=== PATIENT | female | born 1995 | race Asian ===

== ENCOUNTER 2020-06-13 22:03 | Observation (INO) ==
[2020-06-13] MEDS ORDERED: LORazepam 0.5 MG/1 ML VIAL IV STA (22:19)
--- NOTE | 2020-06-13 22:23 | Emergency Department Note ---
Impression & Plan SOB (shortness of breath), Hypophosphatemia, Precordial chest pain, Numbness ED Provider Note NAME: JANIS BROWNING AGE: 24 SEX: F : 1995 ARRIVES VIA: Walk-In INFORMANT: [Patient] ED PROVIDER(S): [Geo Lockwood MD] CHIEF COMPLAINT: Short of breath HISTORY OF PRESENT ILLNESS: Patient is a 24-year-old female presents to the ER with shortness of breath, chest tightness, tingling over her body and face. The patient was seen in this ED 4 days ago for similar symptoms. Her potassium was somewhat low and her phosphorus was low. These levels were supplemented. The patient was seen by the hospitalist service and felt stable for discharge. She was felt to be suff ering primarily from anxiety The patient presents back today complaining of the same symptoms as 4 days ago. She states that she has had tightness across the chest all day. Around an hour or so ago she suddenly began feeling more short of breath, she began having tingling and her left arm felt heavy. There has been no cough, no Covid exposures. She has had no urinary complaints. She is not concerned about . Patient states that she is under some stress from school but she is not convinced this is causing her difficulty. She has never been diagnosed before with anxiety or depression. Patient is taking her new medications as prescribed. She was prescribed Zoloft and potassium phosphate. REVIEW OF SYSTEMS: See HPI for pertinent positives and negatives. A total of ten systems were reviewed and were otherwise negative. PMHx/PSHx: See Below SOCIAL HISTORY: See Below. PHYSICAL EXAM: GENERAL: Patient is in mild distress, hyperventilating. HEENT: No acute trauma, normocephalic atraumatic, mucous membranes moist, no nasal congestion, no scleral icterus. NECK: No stridor, no adenopathy, no meningismus, trachea is midline. LUNGS: Clear to auscultation bilaterally, no wheeze, no rhonchi, breath sounds equal. Increased respiratory rate, she appears to be hyperventilating. HEART: Mildly tachycardic, regular rhythm, no murmurs ABDOMEN: Soft, nontender, bowel sounds positive, no hernias, no peritonitis. EXTREMITIES: No cyanosis or edema, full range of motion of all the joints without pain or difficulty, no signs for acute trauma. NEUROLOGIC: Oriented x 3, no acute motor or sensory deficits, no focal weakness. SKIN: No rash, no jaundice, no diaphoresis. Psychiatric: Cooperative, voluntary, denies being suicidal, denies being stressed or anxious. DIFFERENTIAL DIAGNOSIS: Reactive airway disease, pneumonia, SVT, anxiety, panic, dysrhythmia, pneumothorax, COPD, CHF, infections, cardiac ischemia, pulmonary embolism, musculoskeletal, gastrointestinal, as well as other pathologies. EMERGENCY DEPARTMENT COURSE/PROCEDURES: ECG: Indication was chest pain and shortness of breath. The ECG shows a normal sinus rhythm with a rate of 94. There is no ST elevation, no PVCs. The QTc is 457. Continuous Cardiac Monitoring: An order was placed for continuous cardiac monitoring. The monitor shows a rate of 88 with normal sinus rhythm. MEDICAL DECISION MAKING: There is no leukocytosis or concerning anemia. There is a normal platelet count. No coagulopathy. No kidney failure. Phosphorus was critically low at 0.9. This value is lower than the value from a few days ago which was also critically low. No worrisome liver enzyme elevation. The patient appeared to be in a euthyroid state. No evidence for pancreatitis. testing was negative. ECG shows a sinus rhythm, no acute ischemia. Cardiac enzyme testing x1 is not consistent with acute cardiac injury. Chest CT does not show PE, there is no pneumonia. No evidence for aortic dissection. Patient received IV Ativan as she did seem to be hyperventilating when she first arrived. She was given IV saline 500 cc. She was ordered for 15 mmol of IV potassium phosphate. Patient was in our ED a few days ago. Her phosphorus was critically low. She was assessed by the hospital team and felt stable for discharge on oral phosphorus replacement. Patient returns today complaining of chest pain, fatigue, extremity numbness and shortness of breath. She feels her muscles are twitching. She returns today with the same complaints and has a lower phosphorus than before despite the oral medication prescribed. Given the failed outpatient treatment, I do think a hospital stay would be warranted. She requires electrolyte replacement. I did speak with the case management team. I spoke with the patient. The on-call hospitalist was consulted. The reason for the critically low phosphorus is unclear. Past Med/Surg History Medical History No significant past medical history Surgical History No significant past surgical history Social History Smoking Status: Never smoker Preferred Language: [place] marital status: Single current occupational status: student Feels Safe at Home: Yes Allergies Allergies Allergy/AdvReac Type Severity Reaction Status Date / Time No Known Allergies Allergy Verified 06/13/20 22:48 Home Meds Previous Rx's Medication Instructions Recorded potassium phosphate, monobasic 1,000 mg PO BID #30 tab 06/09/20 [K-Phos Original] sertraline [Zoloft] 25 mg PO DAILY #14 tab 06/09/20 Results & Data (ED) Vital Signs Vital Signs - 24 hr 06/13/20 22:05 06/13/20 22:19 06/13/20 22:39 Temperature 36.6 C Temperature Source Temporal Artery Scan Pulse Rate 112 H 98 H Pulse Rate [Apical] Pulse Rate from SpO2 Sensor Respiratory Rate 20 22 Respiratory Effort / Characteristics Respiratory Depth Respiratory Pattern Blood Pressure 121/70 Blood Pressure [Right Arm] Blood Pressure Mean 87 Blood Pressure Mean [Right Arm] Blood Pressure Position Sitting Pulse Oximetry 100 100 100 Oxygen Delivery Method Room Air Room Air Room Air Sepsis Recent Fever Within 48 Hours No Sepsis New/Unexplained Change in Mental Status N/A Sepsis Action Taken by Nursing No Action Required 06/13/20 22:43 06/13/20 23:00 06/13/20 23:01 Temperature Temperature Source Pulse Rate 88 88 Pulse Rate [Apical] 97 H Pulse Rate from SpO2 Sensor 89 88 Respiratory Rate 24 24 21 Respiratory Effort / Characteristics Non-Labored Spontaneous Respiratory Depth Normal Respiratory Pattern Regular Blood Pressure 112/75 Blood Pressure [Right Arm] 133/76 Blood Pressure Mean 81 Blood Pressure Mean [Right Arm] 95 Blood Pressure Position Pulse Oximetry 100 100 100 Oxygen Delivery Method Room Air Room Air Room Air Sepsis Recent Fever Within 48 Hours Sepsis New/Unexplained Change in Mental Status Sepsis Action Taken by Intermediate Medications Current Medication List: was personally reviewed by me Laboratory Data Attestation: I reviewed the patient's lab results. Result diagrams: 06/13/20 22:42 06/13/20 22:42 Lab Results 06/13/20 06/13/20 06/13/20 Range/Units 22:42 22:42 22:42 WBC 6.81 (4.8-10.8) K/uL RBC 4.77 (4.2-5.4) M/uL Hgb 13.3 (12.0-16.0) g/dL Hct 40.2 (37-47) % MCV 84.3 (80-100) fL MCH 27.9 (25-34) pg MCHC 33.1 (32-36) g/dL RDW Std Deviation 38.7 (36.4-46.3) fL RDW Coeff of Hung 12.8 (11.5-14.5) % Plt Count 305 (130-400) K/uL MPV 9.6 (7.4-10.4) fL Immature Gran % (Auto) 0.1 % Neut % (Auto) 68.0 % Lymph % (Auto) 22.8 % Coos % (Auto) 7.8 % Eos % (Auto) 0.9 % Baso % (Auto) 0.4 % Neut # (Auto) 4.63 (1.4-6.5) K/uL Lymph # (Auto) 1.55 (1.2-3.4) K/uL Coos # (Auto) 0.53 (0.11-0.59) K/uL Eos # (Auto) 0.06 (0-0.5) K/uL Baso # (Auto) 0.03 (0-0.2) K/uL Immature Gran # (Auto) 0.01 (0.00-0.02) K/uL PT 10.7 (9.0-12.0) Seconds INR 1.0 (0.9-1.1) APTT 29.5 (21.0-31.0) Seconds PTT Ratio 1.1 Sodium 142 (136-145) mmol/L Potassium 3.6 (3.5-5.1) mmol/L Chloride 109 H (98-107) mmol/L Carbon Dioxide 26 (21-32) mmol/L Anion Gap 7.0 (3-11) BUN 9 (7-18) mg/dl Creatinine 0.77 (0.6-1.2) mg/dl Est Cr Clr Drug Dosing 73.5 ml/min Est GFR ( Amer) 127.0 Est GFR (Non-Af Amer) 109.6 BUN/Creatinine Ratio 12.0 (10-20) Glucose 91 (70-99) mg/dl Calcium 9.3 (8.5-10.1) mg/dl Phosphorus 0.9 L* (2.5-4.9) mg/dl Total Bilirubin 0.2 (0.2-1) mg/dl AST 21 (15-37) U/L ALT 18 (12-78) U/L Alkaline Phosphatase 42 L (45-117) U/L Troponin I < 0.015 (0-0.045) ng/ml Total Protein 9.6 H (6.4-8.2) gm/dl Albumin 4.6 (3.4-5.0) gm/dl Globulin 5.0 H (2.5-4.0) gm/dl Albumin/Globulin Ratio 0.9 (0.9-2) Lipase 299 (73-393) U/L TSH 1.170 (0.300-4.500) uIu/ml HCG, Qual (Negative) Specimen Hemolysis 06/13/20 Range/Units 22:42 WBC (4.8-10.8) K/uL RBC (4.2-5.4) M/uL Hgb (12.0-16.0) g/dL Hct (37-47) % MCV (80-100) fL MCH (25-34) pg MCHC (32-36) g/dL RDW Std Deviation (36.4-46.3) fL RDW Coeff of Hung (11.5-14.5) % Plt Count (130-400) K/uL MPV (7.4-10.4) fL Immature Gran % (Auto) % Neut % (Auto) % Lymph % (Auto) % Coos % (Auto) % Eos % (Auto) % Baso % (Auto) % Neut # (Auto) (1.4-6.5) K/uL Lymph # (Auto) (1.2-3.4) K/uL Coos # (Auto) (0.11-0.59) K/uL Eos # (Auto) (0-0.5) K/uL Baso # (Auto) (0-0.2) K/uL Immature Gran # (Auto) (0.00-0.02) K/uL PT (9.0-12.0) Seconds INR (0.9-1.1) APTT (21.0-31.0) Seconds PTT Ratio Sodium (136-145) mmol/L Potassium (3.5-5.1) mmol/L Chloride (98-107) mmol/L Carbon Dioxide (21-32) mmol/L Anion Gap (3-11) BUN (7-18) mg/dl Creatinine (0.6-1.2) mg/dl Est Cr Clr Drug Dosing ml/min Est GFR ( Amer) Est GFR (Non-Af Amer) BUN/Creatinine Ratio (10-20) Glucose (70-99) mg/dl Calcium (8.5-10.1) mg/dl Phosphorus (2.5-4.9) mg/dl Total Bilirubin (0.2-1) mg/dl AST (15-37) U/L ALT (12-78) U/L Alkaline Phosphatase (45-117) U/L Troponin I (0-0.045) ng/ml Total Protein (6.4-8.2) gm/dl Albumin (3.4-5.0) gm/dl Globulin (2.5-4.0) gm/dl Albumin/Globulin Ratio (0.9-2) Lipase (73-393) U/L TSH (0.300-4.500) uIu/ml HCG, Qual Negative (Negative) Specimen Hemolysis Administered Medications Potassium Phosphate 15 mmol/ (Sodium Chloride) 255 mls @ 88 mls/hr IV ONE STA Stop: 06/14/20 02:45 Last Admin: 06/14/20 00:30 Dose: 88 mls/hr Documented by: [id number] Discontinued Medications Sodium Chloride (Nss) 500 mls @ 999 mls/hr IV .Q31M DONNA Stop: 06/13/20 23:00 Last Infusion: 06/13/20 23:28 Dose: 0 mls/hr Documented by: [id number] Admin: 06/13/20 22:40 Dose: 999 mls/hr Documented by: [id number] Lorazepam (Ativan) 0.5 mg in 1 mls @ 1 mls/min IV NOW STA Stop: 06/13/20 22:20 Last Admin: 06/13/20 22:40 Dose: 1 mls/min Documented by: [id number] Ioversol (Optiray 320 125ml) 118 ml IV ONCE ONE Stop: 06/14/20 00:00 Last Admin: 06/14/20 00:00 Dose: 1 ml Documented by: [id number] Potassium Phosphate (Potassium Phos 3 Mmol/1 Ml Infusion) 15 mmol IV NOW STA Stop: 06/13/20 23:37 Last Admin: 06/14/20 00:30 Dose: Not Given Documented by: [id number] Imaging Data Radiologist's Impression: CT ANGIOGRAM OF THE CHEST CLINICAL HISTORY: Atypical chest pain. COMPARISON STUDY: Chest x-ray dated 06/09/2020. TECHNIQUE: Following the IV administration of 118 cc of Optiray 320, CT angiogram of the chest was performed from the upper abdomen to the thoracic inlet utilizing the pulmonary embolus protocol. Images are reviewed in the axial, sagittal, and coronal planes. 3-D MIPS images are created and assessed. IV contrast was administered without complication. A dose lowering technique was utilized adhering to the principles of ALARA. CT DOSE: 231.21 mGy.cm FINDINGS: Thyroid: Imaged portions of the thyroid gland are normal in size and attenuation. Thoracic aorta: The thoracic aorta is normal in caliber and demonstrates 4- vessel variant arch anatomy. No dissection is seen. Pulmonary vasculature: The pulmonary trunk is normal in caliber. There are no filling defects identified in main, lobar, or segmental pulmonary branches to suggest pulmonary embolus. Evaluation of the lower lobe vessels is degraded by motion artifact. Heart: The heart is normal in size and without pericardial effusion. Lungs and pleural spaces: Evaluation of the lung parenchyma is modestly degraded by motion artifact. There is no airspace consolidation or pleural effusion. The trachea and central airways are clear. Mediastinum: There is no mediastinal lymphadenopathy. Jenny: Clear. Axillae: There is no axillary lymphadenopathy. Upper abdomen: Partially visualized upper abdominal viscera is within normal limits. Skeletal structures: No lytic or blastic bony lesions are seen. There is mild thoracic scoliosis. IMPRESSION: 1. There is no evidence of pulmonary embolus in the main, lobar, or segmental pulmonary arteries. 2. There is no airspace consolidation or pleural effusion. Discharge Plan Visit Data Chief Complaint: Anxiety Stated Complaint: CHEST PAIN ED Provider: Geo Lockwood Discharge Problem: SOB (shortness of breath), Hypophosphatemia, Precordial chest pain, Numbness Patient Disposition: Admitted As Inpatient Condition: Fair Forms Stand Alone Forms: [facility], Suicide Prevention Resources Prescriptions Prescriptions: No Action sertraline [Zoloft] 25 mg tablet 25 mg PO DAILY Qty: 14 RF: 0 K-Phos Original 500 mg tablet,soluble 1,000 mg PO BID Qty: 30 RF: 0 Referrals Referrals: [facility] [Primary Care Provider] -
[2020-06-13] MEDS ORDERED: SODIUM CHLORIDE 0.9% 500 ML IV SCH (22:30)
[2020-06-13 22:50] LABS: Basophils # (auto) 0.03 K/uL (0-0.2); Basophils % (auto) 0.4 %; Eosinophils # (auto) 0.06 K/uL (0-0.5); Eosinophils % (auto) 0.9 %; Hematocrit (blood only) 40.2 % (37-47); Hemoglobin 13.3 g/dL (12.0-16.0); Immature Granulocytes # (auto) 0.01 K/uL (0.00-0.02); Immature Granulocytes % (auto) 0.1 %; Lymphocytes # (auto) 1.55 K/uL (1.2-3.4); Lymphocytes % (auto) 22.8 %; Mean Corpuscular Hemoglobin 27.9 pg (25-34); Mean Corpuscular Hgb Conc 33.1 g/dL (32-36); Mean Corpuscular Volume 84.3 fL (80-100); Mean Platelet Volume 9.6 fL (7.4-10.4); Monocytes # (auto) 0.53 K/uL (0.11-0.59); Monocytes % (auto) 7.8 %; Neutrophils # (auto) 4.63 K/uL (1.4-6.5); Platelet Count 305 K/uL (130-400); RDW Coefficient of Variation 12.8 % (11.5-14.5); RDW Standard Deviation 38.7 fL (36.4-46.3); Red Blood Count 4.77 M/uL (4.2-5.4); White Blood Count 6.81 K/uL (4.8-10.8)
[2020-06-13 23:03] LABS: Partial Thromboplastin Ratio 1.1; Partial Thromboplastin Time 29.5 Seconds (21.0-31.0); Prothrombin Time 10.7 Seconds (9.0-12.0)
[2020-06-13 23:11] LABS: Alanine Aminotransferase 18 U/L (12-78); Albumin Level 4.6 gm/dl (3.4-5.0); Aspartate Aminotransferase 21 U/L (15-37); Blood Urea Nitrogen 9 mg/dl (7-18); Calcium 9.3 mg/dl (8.5-10.1); Carbon Dioxide 26 mmol/L (21-32); Chloride 109 mmol/L (98-107); Creatinine Clr Calc Pharmacy 73.5 ml/min; Est GFR (Non-African American) 109.6; Glucose 91 mg/dl (70-99); Lipase 299 U/L (73-393); Potassium 3.6 mmol/L (3.5-5.1); Sodium 142 mmol/L (136-145)
[2020-06-13 23:15] LABS: Pregnancy Test, Serum Negative (Negative)
[2020-06-13 23:35] LABS: Albumin Globulin Ratio 0.9 (0.9-2); Alkaline Phosphatase 42 U/L (45-117); Bilirubin,Total 0.2 mg/dl (0.2-1); Phosphorus 0.9 mg/dl (2.5-4.9); Total Protein 9.6 gm/dl (6.4-8.2); Troponin I < 0.015 ng/ml (0-0.045)
[2020-06-13] MEDS ORDERED: POTASSIUM PHOS 3 MMOL/1 ML INFUSION IV STA (23:36)
[2020-06-13] MEDS ORDERED: POTASSIUM PHOSPHATE 15 MMOL in SODIUM CHLORIDE 0.9% 250 ML IV STA (23:52)
[2020-06-13] MEDS ORDERED: OPTIRAY 320 125ml IV ONE (23:59)
--- NOTE | 2020-06-14 00:18 | CT Scan Report ---
CT ANGIOGRAM OF THE CHEST CLINICAL HISTORY: Atypical chest pain. COMPARISON STUDY: Chest x-ray dated 06/09/2020. TECHNIQUE: Following the IV administration of 118 cc of Optiray 320, CT angiogram of the chest was pe rformed from the upper abdomen to the thoracic inlet utilizing the pulmonary embolus protocol. Images are reviewed in the axial, sagittal, and coronal planes. 3-D MIPS images are created and assessed. I V contrast was administered without complication. A dose lowering technique was utilized adhering to the principles of ALARA. CT DOSE: 231.21 mGy.cm FINDINGS: Thyroid: Imaged portions of the thyroid gland are normal in size and attenuation. Thoracic aorta: The thoracic aorta is normal in caliber and demonstrates 4-vessel variant arch anatom y. No dissection is seen. Pulmonary vasculature: The pulmonary trunk is normal in caliber. There are no filling defects identif ied in main, lobar, or segmental pulmonary branches to suggest pulmonary embolus. Evaluation of the l ower lobe vessels is degraded by motion artifact. Heart: The heart is normal in size and without pericardial effusion. Lungs and pleural spaces: Evaluation of the lung parenchyma is modestly degraded by motion artifact. There is no airspace consolidation or pleural effusion. The trachea and central airways are clear. Mediastinum: There is no mediastinal lymphadenopathy. Jenny: Clear. Axillae: There is no axillary lymphadenopathy. Upper abdomen: Partially visualized upper abdominal viscera is within normal limits. Skeletal structures: No lytic or blastic bony lesions are seen. There is mild thoracic scoliosis. IMPRESSION: 1. There is no evidence of pulmonary embolus in the main, lobar, or segmental pulmonary arteries. 2. There is no airspace consolidation or pleural effusion. ACT 112: Negative or not required by law. Electronically signed by: Geo Madrigal M.D. 06/14/2020 12:17 AM
--- NOTE | 2020-06-14 01:35 | History & Physical Report ---
Date of Service June 14, 2020 Assessment & Plan (1) Hypophosphatemia: PO4=0.9. Patient with no respiratory distress. No weakness appreciated on exam. Renal function intact. TSH WNL. ?if this is secondary to hyperventilation and anxiety. ?Component of poor diet and improper nutrition, ?renal losses -Check Vitamin D level -Check PTH -Check Urine PO4 -Check UA -PO4 repletion with 15mmol of KPO4 -Continue PO PO4 -Repeat PO4 level in AM Present on Admission?: Yes (2) Precordial chest pain: Most likely secondary to anxiety. Patient is low risk for ACS. No arrhythmia. Troponin and EKG are unremarkable -continue to monitor Present on Admission?: Yes (3) Anxiety: Patient appears anxious on exam -Continue Sertraline F/E/N - Heplock. PO4 management as above - check Mg x 1 and replete as needed, remainder of electrolytes are WNL, regular diet as tolerated Ppx - Low risk for DVT Code - Full Dispo - Observation to medical History of Present Illness Chief Complaint: anxiety Primary Care Provider: [facility] Sola Jeong is a 24yo female presenting with complaint of palpitations, left sided chest pressure. She was seen in the ER on 06/09/20 with similar complaints - was evaluated by the Hospitalist service at that time and was ultimately discharged home with PO4 tablets for hypophosphatemia of 1.2 and a prescription for Zoloft for anxiety. Patient returns today with similar complaints. She reports not feeling well for the last three days with shortness of breath, numbness and tingling of her fingers and LUE as well as some perioral numbness. She reports feeling some left sided chest heaviness and pressure with radiation into her left shoulder and down her left arm. She reports occasional palpitations. She states she has a normal diet - eats 2 meals per day. She is not trying to lose weight. Denies withholding food or purging, denies diarrhea. Her stools have, however, been looser since starting the Zoloft which is to be expected. No family history of medical conditions or bone disease. She has been taking her medications as prescribed since her visit to the ER. ER Course: Found to be hypophosphatemic with PO4=0.9. Administered KPhos x 15mmol, NSS x 500mL Allergies Allergy/AdvReac Type Severity Reaction Status Date / Time No Known Allergies Allergy Verified 06/13/20 22:48 Home Medications Medication Instructions Recorded Confirmed Type potassium phosphate, monobasic 1,000 mg PO BID #30 tab 06/09/20 06/13/20 Rx [K-Phos Original] sertraline [Zoloft] 25 mg PO DAILY #14 tab 06/09/20 06/13/20 Rx Past Med/Surg History Medical History No significant past medical history Surgical History No significant past surgical history Family History (Updated 06/14/20 @ 01:29 by Sabrina Larose DO) Other No significant family history Social History Smoking Status: Never smoker Preferred Language: Greek marital status: Single current occupational status: student Feels Safe at Home: Yes Review of Systems Review of Systems: All systems reviewed & are unremarkable except as noted in HPI & below Physical Exam Physical Exam: General: patient resting comfortably, NAD, non-toxic in appearance, AA&O x 4 Skin: warm, dry, intact, no rashes or lesions HEENT: NC/AT, PERRL, EOMI, anicteric sclera, conjunctiva without injection, external ear normal to inspection and nontender, nares patent, moist mucus membranes, dentition intact, no oropharyngeal lesions, neck supple, trachea midline, no LAD, no thyromegaly, no JVD Heart: +S1/S2, regular, no m/r/g Lungs: equal air entry bilaterally, no rales/rhonchi/wheezes Abd: +BS, soft, NT/ND, no masses/organomegaly/ascites Ext: warm, 2+ pulses in UE/LE bilaterally, no clubbing/cyanosis or edema Neuro: nonfocal, patient AA&O x 4, speech intact, no facial droop, moving all extremities on command with equal strength 5/5 Results & Data Results & Data ([place]) Vital Signs (Past 12 Hours) Vital Signs Temp Pulse Pulse Resp BP BP Pulse Ox 06/14/20 01:01 88 20 99 06/14/20 01:00 88 19 127/83 100 06/14/20 00:53 89 22 131/73 95 06/13/20 23:31 83 15 100 06/13/20 23:30 83 19 111/68 99 06/13/20 23:01 88 21 100 06/13/20 23:00 88 24 112/75 100 06/13/20 22:43 97 H 24 133/76 100 06/13/20 22:39 98 H 22 100 06/13/20 22:19 100 06/13/20 22:05 36.6 C 112 H 20 121/70 100 Laboratory Results Lab Results 06/13/20 06/13/20 06/13/20 Range/Units 22:42 22:42 22:42 WBC 6.81 (4.8-10.8) K/uL RBC 4.77 (4.2-5.4) M/uL Hgb 13.3 (12.0-16.0) g/dL Hct 40.2 (37-47) % MCV 84.3 (80-100) fL MCH 27.9 (25-34) pg MCHC 33.1 (32-36) g/dL RDW Std Deviation 38.7 (36.4-46.3) fL RDW Coeff of Hung 12.8 (11.5-14.5) % Plt Count 305 (130-400) K/uL MPV 9.6 (7.4-10.4) fL Immature Gran % (Auto) 0.1 % Neut % (Auto) 68.0 % Lymph % (Auto) 22.8 % [place] % (Auto) 7.8 % Eos % (Auto) 0.9 % Baso % (Auto) 0.4 % Neut # (Auto) 4.63 (1.4-6.5) K/uL Lymph # (Auto) 1.55 (1.2-3.4) K/uL [place] # (Auto) 0.53 (0.11-0.59) K/uL Eos # (Auto) 0.06 (0-0.5) K/uL Baso # (Auto) 0.03 (0-0.2) K/uL Immature Gran # (Auto) 0.01 (0.00-0.02) K/uL PT 10.7 (9.0-12.0) Seconds INR 1.0 (0.9-1.1) APTT 29.5 (21.0-31.0) Seconds PTT Ratio 1.1 Sodium 142 (136-145) mmol/L Potassium 3.6 (3.5-5.1) mmol/L Chloride 109 H (98-107) mmol/L Carbon Dioxide 26 (21-32) mmol/L Anion Gap 7.0 (3-11) BUN 9 (7-18) mg/dl Creatinine 0.77 (0.6-1.2) mg/dl Est Cr Clr Drug Dosing 73.5 ml/min Est GFR ( Amer) 127.0 Est GFR (Non-Af Amer) 109.6 BUN/Creatinine Ratio 12.0 (10-20) Glucose 91 (70-99) mg/dl Calcium 9.3 (8.5-10.1) mg/dl Phosphorus 0.9 L* (2.5-4.9) mg/dl Total Bilirubin 0.2 (0.2-1) mg/dl AST 21 (15-37) U/L ALT 18 (12-78) U/L Alkaline Phosphatase 42 L (45-117) U/L Troponin I < 0.015 (0-0.045) ng/ml Total Protein 9.6 H (6.4-8.2) gm/dl Albumin 4.6 (3.4-5.0) gm/dl Globulin 5.0 H (2.5-4.0) gm/dl Albumin/Globulin Ratio 0.9 (0.9-2) Lipase 299 (73-393) U/L TSH 1.170 (0.300-4.500) uIu/ml HCG, Qual (Negative) Specimen Hemolysis SARS-CoV-2 Ag (Rapid) (Negative) 06/13/20 06/14/20 Range/Units 22:42 00:59 WBC (4.8-10.8) K/uL RBC (4.2-5.4) M/uL Hgb (12.0-16.0) g/dL Hct (37-47) % MCV (80-100) fL MCH (25-34) pg MCHC (32-36) g/dL RDW Std Deviation (36.4-46.3) fL RDW Coeff of Hnug (11.5-14.5) % Plt Count (130-400) K/uL MPV (7.4-10.4) fL Immature Gran % (Auto) % Neut % (Auto) % Lymph % (Auto) % [place] % (Auto) % Eos % (Auto) % Baso % (Auto) % Neut # (Auto) (1.4-6.5) K/uL Lymph # (Auto) (1.2-3.4) K/uL [place] # (Auto) (0.11-0.59) K/uL Eos # (Auto) (0-0.5) K/uL Baso # (Auto) (0-0.2) K/uL Immature Gran # (Auto) (0.00-0.02) K/uL PT (9.0-12.0) Seconds INR (0.9-1.1) APTT (21.0-31.0) Seconds PTT Ratio Sodium (136-145) mmol/L Potassium (3.5-5.1) mmol/L Chloride (98-107) mmol/L Carbon Dioxide (21-32) mmol/L Anion Gap (3-11) BUN (7-18) mg/dl Creatinine (0.6-1.2) mg/dl Est Cr Clr Drug Dosing ml/min Est GFR ( Amer) Est GFR (Non-Af Amer) BUN/Creatinine Ratio (10-20) Glucose (70-99) mg/dl Calcium (8.5-10.1) mg/dl Phosphorus (2.5-4.9) mg/dl Total Bilirubin (0.2-1) mg/dl AST (15-37) U/L ALT (12-78) U/L Alkaline Phosphatase (45-117) U/L Troponin I (0-0.045) ng/ml Total Protein (6.4-8.2) gm/dl Albumin (3.4-5.0) gm/dl Globulin (2.5-4.0) gm/dl Albumin/Globulin Ratio (0.9-2) Lipase (73-393) U/L TSH (0.300-4.500) uIu/ml HCG, Qual Negative (Negative) Specimen Hemolysis SARS-CoV-2 Ag (Rapid) Negative (Negative) Diagnostic Findings CT ANGIOGRAM OF THE CHEST CLINICAL HISTORY: Atypical chest pain. COMPARISON STUDY: Chest x-ray dated 06/09/2020. TECHNIQUE: Following the IV administration of 118 cc of Optiray 320, CT ang iogram of the chest was performed from the upper abdomen to the thoracic inlet utilizing the pulmonary embolus protocol. Images are reviewed in the axial, sagittal, and coronal planes. 3-D MIPS images are created and assessed. IV contrast was administered without complication. A dose lowering technique was utilized adhering to the principles of ALARA. CT DOSE: 231.21 mGy.cm FINDINGS: Thyroid: Imaged portions of the thyroid gland are normal in size and attenuation. Thoracic aorta: The thoracic aorta is normal in caliber and demonstrates 4- vessel variant arch anatomy. No dissection is seen. Pulmonary vasculature: The pulmonary trunk is normal in caliber. There are no filling defects identified in main, lobar, or segmental pulmonary branches to suggest pulmonary embolus. Evaluation of the lower lobe vessels is degraded by motion artifact. Heart: The heart is normal in size and without pericardial effusion. Lungs and pleural spaces: Evaluation of the lung parenchyma is modestly degraded by motion artifact. There is no airspace consolidation or pleural effusion. The trachea and central airways are clear. Mediastinum: There is no mediastinal lymphadenopathy. Jenny: Clear. Axillae: There is no axillary lymphadenopathy. Upper abdomen: Partially visualized upper abdominal viscera is within normal limits. Skeletal structures: No lytic or blastic bony lesions are seen. There is mild thoracic scoliosis. IMPRESSION: 1. There is no evidence of pulmonary embolus in the main, lobar, or segmental pulmonary arteries. 2. There is no airspace consolidation or pleural effusion. ACT 112: Negative or not required by law. Electronically signed by: Geo Madrigal M.D. 06/14/2020 12:17 AM Dictated: 06/14/2010Transcribed: 06/14/2010 ECG Additional Comments: EKG with NSR at 94, normal axis, XL=852, QRS=74, PGn=806, no acute ischemic changes PG Care Time/CCT Total # of Minutes Spent Total Time Spent with Patient: Total time spent is greater than 50% in coordination of care (as documented) at patient's floor/unit and/or counseling patient: Coding Level of Care Code 09045 OBS Care - Level 2 Diagnoses Hypophosphatemia E83.39 Precordial chest pain R07.2 Anxiety F41.9
[2020-06-14] MEDS ORDERED: ACETAMINOPHEN 325 MG TAB PO PRN (03:29)
[2020-06-14] MEDS: POT PHOSPHATE MONOBASIC W/ SOD TAB PO SCH ×2 (07:48→20:21)
[2020-06-14] MEDS: SERTRALINE HCL 50 MG TABLET PO SCH (07:48)
[2020-06-14 08:48] LABS: Appearance Urine Clear (Clear); Bilirubin Urine Negative (Negative); Blood Urine Negative (Negative); Color Urine Yellow; Glucose Urine UA Negative (Negative); Ketones Urine Negative (Negative); Leukocyte Esterase Urine Negative (Negative); Nitrite Urine Negative (Negative); Protein Urine Negative (Negative); Specific Gravity Urine 1.045 (1.000-1.030); Urobilinogen Urine Negative (Negative)
[2020-06-14] MEDS ORDERED: POTASSIUM PHOSPHATE MONOBASIC 500 MG TAB PO SCH (09:00)
--- NOTE | 2020-06-14 11:56 | Hospitalist Progress Note ---
Date of Service June 14, 2020 Assessment & Plan (1) Hypophosphatemia: PO4=0.9. Patient with no respiratory distress. No weakness appreciated on exam. Renal function intact. TSH WNL. ?if this is secondary to hyperventilation and anxiety. ?Component of poor diet and improper nutrition, ?renal losses -Vitamin D low at 14.7. May be cause for hypophosphatemia. Start supplementation with 1,000 units daily today. -PTH normal at 66.0. -Urine PO4 >90.0 -PO4 repletion with 15mmol of KPO4 -Continue PO PO4 -Repeat PO4 level in AM (2) Precordial chest pain: Most likely secondary to anxiety. Patient is low risk for ACS. No arrhythmia. Troponin and EKG are unremarkable Patient reports pressure has improved, but c/o pain 4-5/10 of the 10-11th rib this morning. This is reproducible with palpation. ? costochondritis Continue Tylenol for pain. Consider adding NSAID if not improving. (3) Anxiety: Continue Sertraline Ppx - Low risk for DVT Code - Full Dispo - Observation to medical Admission and Anticipated Discharge Date Admission Date: June 14, 2020 Subjective 24 yo female [employer] student admitted for hypophosphatemia and precordial chest pain. Patient reports chest pressure is improving, but now c/o pain 4-5/10 over the rib 10-11 on the left side. She denies any n/v. Denies constipation or diarrhea. Patient does not feel she is under a lot of stress as she has finished her finals for the semester. She reports she eats a lot of meat and veggies at home. Review of Systems Constitutional: no fever and no chills Eyes: no worsening vision Ear, Nose, Mouth, Throat: no dizziness Respiratory: no dyspnea Cardiovascular: no chest pain Gastrointestinal: no abdominal pain, no nausea and no vomiting Psychiatric: no confusion Physical Exam Physical Exam: Temp Pulse Resp BP Pulse Ox 37.4 C 103 H 16 114/76 100 06/14/20 03:15 06/14/20 03:15 06/14/20 03:15 06/14/20 03:15 06/14/20 03:15 Patient is afebrile. Vital signs stable. Constitutional: average body habitus; no acute distress ENMT: Ears: no hearing impairment Neck: trachea midline Thyroid: normal thyroid Respiratory: normal respiratory effort, lungs clear to auscultation Cardiovascular: RRR, no murmur, no edema Gastrointestinal (Abdomen): Inspection/Auscultation: normal bowel sounds Percussion/Palpation: abdomen soft; abdomen nontender Musculoskeletal: Head/Neck/Chest: + chest tenderness (with palpation of the 10-11th ribs. ) Psychiatric: A+Ox3, euthymic affect Results & Data Results & Data ([facility]) Vital Signs (Past 12 Hours) Vital Signs Temp Pulse Pulse Resp BP BP Pulse Ox 06/14/20 03:15 37.4 C 103 H 16 114/76 100 06/14/20 02:31 84 19 99 06/14/20 02:30 90 19 115/72 98 06/14/20 02:22 85 19 118/69 95 06/14/20 02:01 99 06/14/20 01:31 86 14 95 06/14/20 01:30 85 17 105/68 100 06/14/20 01:01 88 20 99 06/14/20 01:00 88 19 127/83 100 06/14/20 00:53 89 22 131/73 95 06/14/20 00:33 36.6 C 89 113/71 98 PG Care Time/CCT Total # of Minutes Spent Total Time Spent with Patient: Total time spent is greater than 50% in coordination of care (as documented) at patient's floor/unit and/or counseling patient: Coding Level of Care Code 45742 Subseq Obs Care Lvl 2 Medical Decision Making Moderate Complexity Diagnoses Hypophosphatemia E83.39 Precordial chest pain R07.2 Anxiety F41.9
--- NOTE | 2020-06-14 13:10 | Electrocardiogram Report ---
Test Reason : Blood Pressure : / mmHG Vent. Rate : 094 BPM Atrial Rate : 094 BPM P-R Int : 124 ms QRS Dur : 074 ms QT Int : 366 ms P-R-T Axes : 069 084 054 degrees QTc Int : 457 ms Normal sinus rhythm Normal ECG When compared with ECG of 09-JUN-2020 08:44, Nonspecific T wave abnormality has replaced inverted T waves in Anterior leads Confirmed by Sourav Escobar ([id number]) on 06/14/2020 1:10:29 PM Referred By: REFERRED SELF Confirmed By:Jann Escobar
[2020-06-14] MEDS: CHOLECALCIFEROL 1,000 UNITS 25 MCG TAB PO SCH (14:33)
[2020-06-15] MEDS: POT PHOSPHATE MONOBASIC W/ SOD TAB PO SCH ×2 (08:30→18:16)
[2020-06-15] MEDS: CHOLECALCIFEROL 1,000 UNITS 25 MCG TAB PO SCH (08:31)
[2020-06-15] MEDS: SERTRALINE HCL 50 MG TABLET PO SCH (08:31)
[2020-06-15 08:35] LABS: BUN Creatinine Ratio 21.7 (10-20); Blood Urea Nitrogen 11 mg/dl (7-18); Calcium 8.6 mg/dl (8.5-10.1); Carbon Dioxide 25 mmol/L (21-32); Chloride 107 mmol/L (98-107); Creatinine Clr Calc Pharmacy 133.7 ml/min; Est GFR (African American) > 150.0; Est GFR (Non-African American) 135.6; Glucose 72 mg/dl (70-99); Potassium 3.3 mmol/L (3.5-5.1); Sodium 141 mmol/L (136-145)
[2020-06-15 08:42] LABS: Phosphorus 4.5 mg/dl (2.5-4.9)
[2020-06-15] MEDS ORDERED: POTASSIUM CHLORIDE CRTAB 20 MEQ TABCR PO STA (08:51)
[2020-06-15] MEDS ORDERED: KETOROLAC TROMETHAMINE 15 MG/ML VIAL IV ONE (13:46)
[2020-06-15 16:38] LABS: BUN Creatinine Ratio 13.5 (10-20); Blood Urea Nitrogen 13 mg/dl (7-18); Calcium 8.6 mg/dl (8.5-10.1); Carbon Dioxide 22 mmol/L (21-32); Chloride 109 mmol/L (98-107); Creatinine Clr Calc Pharmacy 70.9 ml/min; Est GFR (African American) 94.9; Est GFR (Non-African American) 81.9; Glucose 94 mg/dl (70-99); Lipase 250 U/L (73-393); Magnesium 2.4 mg/dl (1.8-2.4); Potassium 3.6 mmol/L (3.5-5.1); Sodium 140 mmol/L (136-145); Troponin I < 0.015 ng/ml (0-0.045)
[2020-06-15] MEDS ORDERED: ERGOCALCIFEROL 50,000 UNITS 1250 MCG CAP PO STA (18:15)
[2020-06-15] MEDS ORDERED: Nursing to Pharmacy Communication SCH (18:15)
--- NOTE | 2020-06-15 19:17 | Discharge Summary ---
Date of Service June 15, 2020 Admission HPI Per Admitting Provider Sola Jeong is a 24yo female presenting with complaint of palpitations, left sided chest pressure. She was seen in the ER on 06/09/20 with similar complaints - was evaluated by the Hospitalist service at that time and was ultimately discharged home with PO4 tablets for hypophosphatemia of 1.2 and a prescription for Zoloft for anxiety. Patient returns today with similar complaints. She reports not feeling well for the last three days with shortness of breath, numbness and tingling of her fingers and LUE as well as some perioral numbness. She reports feeling some left sided chest heaviness and pressure with radiation into her left shoulder and down her left arm. She reports occasional palpitations. She states she has a normal diet - eats 2 meals per day. She is not trying to lose weight. Denies withholding food or purging, denies diarrhea. Her stools have, however, been looser since starting the Zoloft which is to be expected. No family history of medical conditions or bone disease. She has been taking her medications as prescribed since her visit to the ER. ER Course: Found to be hypophosphatemic with PO4=0.9. Administered KPhos x 15mmol, NSS x 500mL Principal Diagnosis hypophosphatemia Discharge Exam Constitutional WD/WN, vitals as above Respiratory normal respiratory effort, lungs clear to auscultation Cardiovascular RRR, no murmur, no edema Gastrointestinal (Abdomen) normal bowel sounds, soft, nontender, no hepatosplenomegaly Musculoskeletal no cyanosis or clubbing, extremities motor strength 5/5 Skin no rashes, warm and dry Neurologic moves all extremities and awake Psychiatric A+Ox3, euthymic affect Discharge Data Allergies Allergy/AdvReac Type Severity Reaction Status Date / Time No Known Allergies Allergy Verified 06/17/20 13:31 Consultations 06/14/20 00:25 ED Decision to Admit Stat 06/15/20 16:25 Consult Nephrology Routine Ordered Studies 06/13/20 22:20 CT angio chest PE protocol Stat Hospital Course (1) Hypophosphatemia: PO4=0.9 on admission. Unclear why patient is having phosphorous losses though could be associate with low vitamin D level which was 14.7 -PTH was wnl -PO4 repletion with 15mmol of KPO4 on admission and then Phospha Neutral - repeat level normal today Discussed patient with Dr. Duran. She will have close follow up on Monday for further workup (2) Precordial chest pain: Most likely secondary to anxiety or possibly costochondritis. Pain is reproducible with palpation to the left chest which is tender. The pain does not change with resting vs activity. Patient is low risk for ACS - no cardiac history in immediate family members, patient does not smoke. No arrhythmia. Troponin and EKG are unremarkable x 3 (including episode that brought her to the ED on 06/09) (3) Anxiety: -Continue Sertraline Evening of 06/15 patient had an episode of sob, abdominal pain, weakness in her face/jaw and bilateral arms that started on the right but then became both and tingling in bilateral hands which is similar to her previous episodes. The episode lasted about 20 minutes and then resolved. Patient thinks maybe she is having panic attacks especially as she was going to be discharged and felt nervous about it. Repeat prp, trop, lipase, mag were all normal, EKG unremarkable, vital signs remained stable. Patient very much wanted to discharge after the episode passed and since she remained stable she was discharged to home to continue work up with Dr. Duran outpatient Ppx - Low risk for DVT Code - Full Dispo - Observation to medical (4) Low vitamin D level: Vitamin D level 14.7 - will replace with Vitamin D3 2000 IUs daily and ergocalciferol 50,000 units weekly (5) Hypokalemia: Total Time Total Time Spent Total Time Spent (In Minutes): greater than 30 minutes Discharge Plan Discharge Items Patient Disposition: Home - Self-Care Reason For Visit: HYPOPHOSPHATEMIA Discharge Diagnosis: Hypophosphatemia Condition on Discharge: Fair Activity: Resume your previous activity Activity Comment: gradually as tolerated Non-emergency contact: Primary Care Provider Call non-emergency contact if: you have any medication questions Follow-up/Referrals: Anival Chandler MD [Physician] - 09/16/20 3:00 pm (They will call if an earlier appointment becomes available.) Anel Duran MD [Physician] - 06/17/20 1:00 pm (Follow up on Monday ) [facility] [Primary Care Provider] - Diet: Regular Addtl Attending Provider Instructions: 1) Hypophosphatemia, hypokalemia, low vitamin D: You phosphorous was low while you were here but is normal today after replacement. You will continue with phosphorous, potassium, and vitamin D supplementation until your follow up with nephrology on Monday. You may not need to keep the endocrinology appointment in August. Hold on to it for now and cancel if ok with the head grinder. You will need to follow up on Monday with Dr. Duran at [facility] [phone] (2) Precordial chest pain: Possibly costochondritis vs muscle spasm. You can take Tylenol and ibuprofen for pain, do not exceed dosing as described on the bottle. Ibuprofen can be hard on the stomach lining and kidneys so do not take regularly for longer than a couple of days without talking with your doctor. (3) Anxiety: Continue Sertraline Pending Studies at Discharge: No Stand-Alone Forms: My [facility], Smoking Cessation Medications and DC Order Prescriptions: Continued sertraline [Zoloft] 25 mg tablet 25 mg PO DAILY Qty: 14 RF: 0 Discontinued K-Phos Original 500 mg tablet,soluble 1,000 mg PO BID Qty: 30 RF: 0 No Action ciprofloxacin HCl 250 mg tablet 250 mg PO BID Qty: 6 RF: 0 Glycyrrhizin See Rx Instructions PO DAILY RF: 0 Phospha 250 Neutral 250 mg tablet 4 tab PO BID Qty: 100 RF: 0 potassium chloride 20 mEq tablet extended release 20 meq PO DAILY Qty: 30 RF: 0 ergocalciferol (vitamin D2) 1,250 mcg (50,000 unit) capsule 50,000 unit PO WK Qty: 8 RF: 0 Discharge Orders: Discharge Order (Routine); Ordered 06/15/20 Ordered By: Jessa Roberto Admission Data Admit Date/Time: 06/14/20 01:22 Attending Provider: Pernell Avila Admit Provider: Sabrina Larose Primary Care Provider: [facility] Other Providers: Sabrina Larose ; Anel Duran Other Interventions: Discharge Summary Assessment (RN) Last Done: 06/15/20 17:48 Supervising Physician Co-Signing Physician Notes D/W ESTRELLITA Roberto Patient seen and examined at bedside, obtained history and physical examination. I reviewed above note and agree with it. I discussed discharge plan with APC and patient. Her hypophosphatemia improved. will recommend close followup as an outpatient. Coding Level of Care Code 62783 OBS Care - Discharge Diagnoses Hypophosphatemia E83.39 Precordial chest pain R07.2 Anxiety F41.9 Low vitamin D level R79.89 Hypokalemia E87.6
[2020-06-16] MEDS ORDERED: ERGOCALCIFEROL 50,000 UNITS 1250 MCG CAP PO SCH (09:00)
--- NOTE | 2020-06-16 15:57 | Electrocardiogram Report ---
Test Reason : Blood Pressure : / mmHG Vent. Rate : 078 BPM Atrial Rate : 078 BPM P-R Int : 112 ms QRS Dur : 080 ms QT Int : 374 ms P-R-T Axes : 061 087 052 degrees QTc Int : 426 ms Normal sinus rhythm Normal ECG When compared with ECG of 13-JUN-2020 22:20, No significant change was found Confirmed by John Choudhury ([id number]) on 06/16/2020 3:57:06 PM Referred By: REFERRED SELF Confirmed By:John Choudhury
[2020-06-23] MEDS ORDERED: ERGOCALCIFEROL 50,000 UNITS 1250 MCG CAP PO SCH (09:00)
== END 2020-06-15 19:29 | disposition home or self-care (01) ==
LOC: ED 22:03 → 3W 22:03 → SUATTDRO 06-14 01:22 → 3W 06-14 02:42